=== PATIENT | female | born 1990 | race Caucasian/White ===

== ENCOUNTER → 2016-06-28 | Outpatient (CLI) | payer OTHER ==
--- NOTE | 2016-06-28 14:53 | US ---
EXAMINATION TYPE: US OB anatomy transabd DATE OF EXAM: 06/28/2016 12:59 PM COMPARISON: Prior first trimester ultrasound May 10, 2016. HISTORY: Anatomy scan, large for gestational age per order TECHNIQUE: TA pelvic ultrasound. EXAM MEASUREMENTS: GESTATIONAL AGE / DATING Physician Established: (19 weeks/3 days) EDC: 11/19/2016 Dates by LMP: unknown Dates by First Scan: (19 weeks/4 days) EDC: 11/18/2016 Dates by Current Scan for: (20 weeks/1 days) EDC: 11/14/2016 SURVEY IUP: Single PLACENTA: Anterior PREVIA: Low Lying CHAITANYA: 17.6cm CERVICAL LENGTH (transabdominal: norm > 3.0cm): 3.4 cm BIOMETRY PRESENTATION: Vertex LIE: Longitudinal BPD: 4.5 cm 19 weeks / 5 days HC: 16.8 cm 19 weeks / 4 days AC: 15.1 cm 20 weeks / 3 days FL: 3.3 cm 20 weeks / 3 days ESTIMATED WEIGHT IN GRAMS: 339 grams ESTIMATED WEIGHT IN LBS/OZS: 0 lbs. 12 oz. WEIGHT PERCENTAGE BASED ON ESTABLISHED DATE: 87 % HC/AC: 1.1 normal FL/AC: 22 normal HEART RATE: 169 bpm RHYTHM: Normal ANATOMY SEEN (within normal limits): * Lateral Vent (< 1 cm) 0.9cm * Cisterna Magna (< 1.1 cm) 0.5cm * Nuchal Fold (< 0.6 cm) 0.2 cm * Cerebellum (varies with age) 2.1 cm Choroid Plexus (bilateral) Midline Falx Cavus Septi Pellucidi Four Chamber Heart Outflow tracts: LVOT/RVOT Stomach Situs Nose / Lips Diaphragm Kidneys (bilateral) Bladder Cord Insert Three Vessel Cord Longitudinal Spine Transverse Spine Arms (bilateral) Legs (bilateral) TECHNOLOGIST IMPRESSION: Viable 20w1d fetus seen and appears to have low lying placenta with pre and post void imaging. Single live intrauterine gestation is redemonstrated, heart tones are regular and measure 169 b pm which is upper limits of normal. There is no ultrasound evidence for placenta previa. Low-lying pl acenta however is noted. Anechoic area anteriorly and inferiorly could reflect venous duffy. Amniotic fluid index is upper limits of normal. Normal cephalad presentation to fetus is currently identified. biometry measurements are within normal limits. Detailed anatomical survey shows no suspicious abnormality during real-time scanning. Still images saved are felt satisfactory. IMPRESSION: As above. Low-lying placenta is noted.
== END | disposition home or self-care (01) ==
LOC: RADUSWWP 12:17
PROVIDERS: ATTEND Obstetrics & Gynecology
DX: O44.42 Low lying placenta NOS or without hemorrhage, second trimester (principal); Z3A.20 20 weeks gestation of pregnancy
CPT/HCPCS: 76811

== ENCOUNTER → 2016-08-22 | Outpatient (CLI) | payer OTHER ==
[2016-08-22 14:05] LABS: CH 30.6; CHCM 32.6; HCT 36.8 % (34.0-46.0); HGB 12.2 gm/dL (11.4-16.0); MCH 31.3 pg (25.0-35.0); MCHC 33.1 g/dL (31.0-37.0); MCV 94.5 fL (80.0-100.0); Mean Platelet Volume 7.2; RDW 13.2 % (11.5-15.5); WBC 12.2 k/uL (3.8-10.6)
== END | disposition home or self-care (01) ==
LOC: LABWHC1 12:17
PROVIDERS: ATTEND Obstetrics & Gynecology
DX: Z34.82 Encounter for supervision of other normal pregnancy, second trimester (principal); Z3A.00 Weeks of gestation of pregnancy not specified
CPT/HCPCS: 36415; 82950; 85027

== ENCOUNTER 2016-11-18 06:03 | Inpatient (IN) | payer OTHER ==
[2016-11-18] MEDS ORDERED: LIDOCAINE 1% (PF) 10 MG/ML (30 ML SDV) SQ PRN (06:13)
[2016-11-18] MEDS ORDERED: TERBUTALINE 1 MG/ML VIAL SQ PRN (06:13)
[2016-11-18] MEDS ORDERED: METHYLERGONOVINE 0.2 MG/ML 1 ML AMP IM PRN (06:13)
[2016-11-18] MEDS ORDERED: CARBOPROST TROMETHAMINE 250 MCG/ML 1 ML AMP IM PRN (06:13)
[2016-11-18] MEDS ORDERED: OXYTOCIN 20 UNITS/1000 ML NS 1,000 ML IV SCH ×2 (06:13→17:15)
[2016-11-18] MEDS ORDERED: OXYTOCIN 10 UNIT/ML 1 ML VIAL IM PRN (06:13)
[2016-11-18 06:25] VITALS: BMI 37.4
[2016-11-18] MEDS: LACTATED RINGERS 1,000 ML IV SCH ×2 (06:33→12:28)
[2016-11-18 06:38] LABS: Basophils % (A) 0 %; CH 30.7; CHCM 33.7; Eosinophils # (A) 0.1 k/uL (0-0.7); Eosinophils % (A) 1 %; HCT 34.7 % (34.0-46.0); HDW 2.71; HGB 11.9 gm/dL (11.4-16.0); Luc # (Auto) 0.26; Luc % (Auto) 3; Lymphocytes # (A) 2.7 k/uL (1.0-4.8); Lymphocytes % (A) 27 %; MCH 31.4 pg (25.0-35.0); MCHC 34.2 g/dL (31.0-37.0); MCV 91.8 fL (80.0-100.0); Mean Platelet Volume 7.8; Monocytes # (A) 0.5 k/uL (0-1.0); Monocytes % (A) 5 %; Neutrophils # (A) 6.4 k/uL (1.3-7.7); Neutrophils % (A) 64 %; RBC 3.78 m/uL (3.80-5.40); RDW 13.9 % (11.5-15.5); WBC (Perox) 10.88
[2016-11-18] MEDS ORDERED: BUTORPHANOL 1 MG/ML 1 ML VIAL IV PRN (07:44)
--- NOTE | 2016-11-18 08:32 | P.HPOB ---
History of Present Illness H&P Date: 11/18/16 Chief Complaint: Induction of labor 26-year-old presents at 39 weeks and 6 days for induction of labor. Her cervix is 2 cm dilated, 70% effaced, and -2 station. She is manjinder irregularly. heart tones are 140-145 with moderate variability and reactive. Review of Systems All systems: negative Constitutional: Denies chills, Denies fever Eyes: denies blurred vision, denies pain Ears, nose, mouth and throat: Denies headache, Denies sore throat Cardiovascular: Denies chest pain, Denies shortness of breath Respiratory: Denies cough Gastrointestinal: Denies abdominal pain, Denies diarrhea, Denies nausea, Denies vomiting Genitourinary: Denies dysuria, Denies hematuria Musculoskeletal: Denies myalgias Integumentary: Denies pruritus, Denies rash Neurological: Denies numbness, Denies weakness Psychiatric: Denies anxiety, Denies depression Endocrine: Denies fatigue, Denies weight change Past Medical History Past Medical History: No Reported History Additional Past Medical History / Comment(s): Obstetrics history: She's had one termination one spontaneous and 1 full-term vaginal delivery. This is her fourth . She's had care with me since 11 weeks gestation. Blood type O+, amylase negative, rubella immune, treponema antibody negative, hepatitis B negative. Normal 1 hour glucose tolerance test. GBS negative. History of Any Multi-Drug Resistant Organisms: None Reported Past Surgical History: No Surgical Hx Reported Additional Past Surgical History / Comment(s): WISDOM TEETH Past Anesthesia/Blood Transfusion Reactions: No Reported Reaction Past Psychological History: No Psychological Hx Reported Smoking Status: Never smoker Past Alcohol Use History: None Reported Past Drug Use History: None Reported - Past Family History Father Family Medical History: Hypertension Mother Family Medical History: Diabetes Mellitus, Hypertension, Thyroid Disorder Medications and Allergies Home Medications Medication Instructions Recorded Confirmed Type Pnv,Calcium 72/Iron/Folic Acid 1 tab PO DAILY 11/18/16 11/18/16 History [ Plus Tablet] Allergies Allergy/AdvReac Type Severity Reaction Status Date / Time No Known Allergies Allergy Verified 11/18/16 06:11 Exam Osteopathic Statement: *. No significant issues noted on an osteopathic structural exam other than those noted in the History and Physical/Consult. - Vital Signs Vital signs: Vital Signs Temp Pulse Resp BP 11/18/16 06:17 96.6 F L 109 H 16 131/91 Intake and Output 11/17/16 11/18/16 11/18/16 22:59 06:59 14:59 Other: Weight 89.811 kg Heart: Regular rate and rhythm Lungs: Clear to auscultation bilaterally Abdomen: Soft, nontender Extremities: Negative Homans sign Results Result Diagrams: 11/18/16 06:16 Abnormal Lab Results - Last 24 Hours (Table) 11/18/16 Range/Units 06:16 RBC 3.78 L (3.80-5.40) m/uL Assessment and Plan (1) Normal labor Status: Acute Plan: 1. Admit to family place 2. Amniotomy and Pitocin for induction of labor 3. Anticipate normal vaginal delivery
[2016-11-18] MEDS ORDERED: SODIUM CHLORIDE 0.9% 100 ML BAG ONE (12:42)
[2016-11-18] MEDS ORDERED: fentaNYL (PF) 50 MCG/ML 5 ML AMP ONE (12:42)
[2016-11-18] MEDS ORDERED: BUPIVACAINE (PF) 0.25% 30 ML VIAL ONE (12:42)
[2016-11-18] MEDS ORDERED: IBUPROFEN 600 MG TAB PO PRN (17:04)
[2016-11-18] MEDS ORDERED: ZOLPIDEM 5 MG TAB PO PRN (17:04)
[2016-11-18] MEDS ORDERED: WITCH HAZEL 1 EACH MED..PAD TOPICAL PRN (17:04)
[2016-11-18] MEDS ORDERED: ACETAMINOPHEN TAB 325 MG TAB PO PRN (17:04)
[2016-11-18] MEDS ORDERED: diphenhydrAMINE 50 MG/ML 1 ML VIAL IVP PRN ×2 (17:04)
[2016-11-18] MEDS ORDERED: BENZOCAINE/MENTHOL SPRAY 1 GM/SPRAY AEROSOL TOPICAL PRN (17:04)
[2016-11-18] MEDS ORDERED: SIMETHICONE 80 MG CHEWABLE PO PRN (17:04)
[2016-11-18] MEDS ORDERED: diphenhydrAMINE 25 MG CAP PO PRN (17:04)
[2016-11-18] MEDS ORDERED: HYDROCORTISONE 2.5% RECTAL CREAM 30 GM TUBE RECTAL PRN (17:04)
[2016-11-18] MEDS ORDERED: Acetaminophen-Codeine 300-30mg TAB PO PRN ×2 (17:04)
[2016-11-18] MEDS ORDERED: diphenhydrAMINE 50 MG CAP PO PRN (17:04)
[2016-11-18] MEDS ORDERED: LANOLIN CREAM 5 GM TUBE TOPICAL PRN (17:04)
--- NOTE | 2016-11-18 17:09 | P.PROBDLV ---
Vaginal Delivery Note - . Vaginal Delivery Note: 26 year old at 39 weeks and 6 days presents for induction of labor. Her cervix is 2 cm dilated, 70% effaced, -3 station. She is manjinder irregularly. heart tones 140-145 with moderate variability and reactive. Was started and amniotomy was performed at 7:18 AM, clear fluid noted. She progressed about 4 cm and did get an epidural was comfortable. Her cervix was completely dilated at 1501. She pushed, delivered a viable female over intact perineum under epidural anesthesia at 1540. Head delivered OA, anterior shoulder delivered gentle downward traction followed by posterior shoulder and rest of body. Nose and mouth bulb suctioned, cord clamped and cut, placed mother's abdomen. Apgars 8, 9, weight 7 pounds. Placenta delivered spontaneously, intact with three-vessel cord at 1543. Vagina, cervix, and perineum were inspected. Bilateral labial lacerations were repaired with 3-0 Vicryl. Estimated blood loss 150 mL. Mother and baby in stable condition.
[2016-11-18] MEDS ORDERED: BUPIVACAINE (PF) 0.25% 25 ML, fentaNYL (PF) 200 MCG in SODIUM CHLORIDE 0.9% 71 ML EPIDURAL ONE (19:12)
[2016-11-18] MEDS: SENNOSIDES-DOCUSATE SODIUM 1 EACH TAB PO SCH (21:18)
[2016-11-19 07:40] VITALS: RESP 16
[2016-11-19] MEDS: SENNOSIDES-DOCUSATE SODIUM 1 EACH TAB PO SCH (10:47)
--- NOTE | 2016-11-19 11:58 | P.DS ---
Providers Date of admission: 11/18/16 06:03 Expected date of discharge: 11/19/16 Attending physician: Steffanie Singh Primary care physician: Stated None - Discharge Diagnosis(es) (1) Normal labor Current Visit: Yes Status: Resolved (2) Normal vaginal delivery Current Visit: No Status: Acute Hospital Course: Patient presented for induction of labor. She underwent a normal vaginal delivery. Denies nausea, vomiting, chest pain, shortness of breath or calf pain. She'll be discharged home day #1 in stable condition to follow -up with me in 6 weeks. Plan - Discharge Summary New Discharge Prescriptions: No Action Pnv,Calcium 72/Iron/Folic Acid [ Plus Tablet] 1 tab PO DAILY Discharge Medication List Pnv,Calcium 72/Iron/Folic Acid [ Plus Tablet] 1 tab PO DAILY 11/18/16 [ History] Follow up Appointment(s)/Referral(s): Steffanie Singh DO [Doctor of Osteopathic Medicine] - 6 Weeks Discharge Disposition: HOME SELF-CARE
[2016-11-19 16:43] VITALS: BP 110/65; PULSE 62; TEMP 98.3
== END 2016-11-19 16:30 | disposition home or self-care (01) | DRG 775 ==
LOC: 4FBP 06:03
PROVIDERS: ADMIT Obstetrics & Gynecology; ATTEND Obstetrics & Gynecology
PROC: 10E0XZZ Delivery of Products of Conception, External Approach (ICD-10-PCS; principal; 2016-11-18)
PROC: 10907ZC Drainage of Amniotic Fluid, Therapeutic from Products of Conception, Via Natural or Artificial Opening (ICD-10-PCS; 2016-11-18)
PROC: 0HQ9XZZ Repair Perineum Skin, External Approach (ICD-10-PCS; 2016-11-18)
PROC: 3E033VJ Introduction of Other Hormone into Peripheral Vein, Percutaneous Approach (ICD-10-PCS; 2016-11-18)
PROC: 3E0S3NZ Introduction of Analgesics, Hypnotics, Sedatives into Epidural Space, Percutaneous Approach (ICD-10-PCS; 2016-11-18)
DX: O70.0 First degree perineal laceration during delivery (principal); Z82.49 Family history of ischemic heart disease and other diseases of the circulatory system; Z37.0 Single live birth; Z3A.39 39 weeks gestation of pregnancy; Z83.3 Family history of diabetes mellitus; Z83.49 Family history of other endocrine, nutritional and metabolic diseases
CPT/HCPCS: 85025; 88307

== ENCOUNTER 2018-02-23 09:28 | Emergency (ER) | payer OTHER ==
[2018-02-23 09:51] VITALS: RESP 18
--- NOTE | 2018-02-23 10:29 | ED ---
General Adult HPI - General Chief complaint: Abdominal Pain Stated complaint: pelvic pain Time Seen by Provider: 02/23/18 10:09 Source: patient, RN notes reviewed Mode of arrival: ambulatory Limitations: no limitations - History of Present Illness Initial comments: 27-year-old female presents for evaluation of left-sided abdominal pain. Patient is with history of 1 previous left tubal ectopic . Last menstrual period was the end of December. She has had pain for the past several days. She did have some very minimal vaginal spotting yesterday. No significant hemorrhage. Pain is mid left-sided abdomen which is where her pain was previously. Last tubal was in June of this year. This was successfully treated with methotrexate. She's had no abdominal surgeries. She has had some mild nausea, no significant vomiting, normal bowels, no dysuria. No fever or chills. - Related Data Previous Rx's Medication Instructions Recorded Cephalexin [Keflex] 500 mg PO Q12HR #14 cap 02/23/18 Allergies Allergy/AdvReac Type Severity Reaction Status Date / Time No Known Allergies Allergy Verified 02/23/18 09:55 Review of Systems ROS Statement: Those systems with pertinent positive or pertinent negative responses have been documented in the HPI. ROS Other: All systems not noted in ROS Statement are negative. Past Medical History Past Medical History: No Reported History Additional Past Medical History / Comment(s): Obstetrics history: She's had one termination one spontaneous and 1 full-term vaginal delivery. This is her fourth . She's had care with mt since 11 weeks gestation. Blood type O+, amylase negative, rubella immune, treponema antibody negative, hepatitis B negative. Normal 1 hour glucose tolerance test. GBS negative. History of Any Multi-Drug Resistant Organisms: None Reported Past Surgical History: No Surgical Hx Reported Additional Past Surgical History / Comment(s): WISDOM TEETH Past Anesthesia/Blood Transfusion Reactions: No Reported Reaction Past Psychological History: No Psychological Hx Reported Smoking Status: Never smoker Past Alcohol Use History: Occasional Past Drug Use History: None Reported - Past Family History Father Family Medical History: Hypertension Mother Family Medical History: Diabetes Mellitus, Hypertension, Thyroid Disorder General Exam Limitations: no limitations General appearance: alert, in no apparent distress Head exam: Present: atraumatic, normocephalic Eye exam: Present: normal appearance, PERRL ENT exam: Present: normal exam Neck exam: Present: normal inspection. Absent: tenderness, meningismus Respiratory exam: Present: normal lung sounds bilaterally. Absent: respiratory distress, wheezes Cardiovascular Exam: Present: regular rate, normal rhythm GI/Abdominal exam: Present: soft, tenderness (Mild mid left-sided abdominal tenderness, no rebound or guarding). Absent: distended, guarding, rebound Extremities exam: Present: normal inspection, normal capillary refill. Absent: pedal edema Back exam: Present: normal inspection. Absent: CVA tenderness (R), CVA tenderness (L) Neurological exam: Present: alert, oriented X3 Psychiatric exam: Present: normal affect, normal mood Skin exam: Present: warm, dry, intact. Absent: cyanosis, diaphoretic Course Vital Signs 02/23/18 09:47 Temperature 98.3 F Pulse Rate 94 Respiratory 18 Rate Blood Pressure 118/80 O2 Sat by Pulse 99 Oximetry Medical Decision Making - Medical Decision Making 27-year-old female presenting with concern for and possible tubal . She has had previous ectopic . She's having some left- sided abdominal pain and was concerned that this may be another tubal . She is approximately 6 weeks by last menstrual period. No heavy vaginal bleeding, she had some mild vaginal spotting. Laboratory testing obtained, shows normal CBC, normal CMP, serum hCG is 64,560. Urinalysis shows 3 WBCs and rare bacteria. She is O positive. Ultrasound is obtained which is positive for single live intrauterine , proximally 6 weeks 1 day. Heart rate 123, there is a 1.9 cm subchorionic hemorrhage. No free fluid in the abdomen. No evidence of ectopic . Patient does have OB follow-up. She is given instructions on threatened miscarriage given her symptoms as well as the subchorionic hemorrhage. She has asymptomatic bacteriuria which will be treated. Culture is pending. - Lab Data Result diagrams: 02/23/18 10:35 02/23/18 10:35 Lab Results 02/23/18 02/23/18 02/23/18 Range/Units 10:35 10:35 11:00 WBC 11.1 H (3.8-10.6) k/uL RBC 4.52 (3.80-5.40) m/uL Hgb 13.8 (11.4-16.0) gm/dL Hct 40.6 (34.0-46.0) % MCV 89.8 (80.0-100.0) fL MCH 30.5 (25.0-35.0) pg MCHC 34.0 (31.0-37.0) g/dL RDW 12.5 (11.5-15.5) % Plt Count 235 (150-450) k/uL Neutrophils % 74 % Lymphocytes % 20 % Monocytes % 4 % Eosinophils % 1 % Basophils % 0 % Neutrophils # 8.2 H (1.3-7.7) k/uL Lymphocytes # 2.2 (1.0-4.8) k/uL Monocytes # 0.5 (0-1.0) k/uL Eosinophils # 0.1 (0-0.7) k/uL Basophils # 0.0 (0-0.2) k/uL Sodium 139 (137-145) mmol/L Potassium 4.0 (3.5-5.1) mmol/L Chloride 107 (98-107) mmol/L Carbon Dioxide 23 (22-30) mmol/L Anion Gap 9 mmol/L BUN 13 (7-17) mg/dL Creatinine 0.48 L (0.52-1.04) mg/dL Est GFR (CKD-EPI)AfAm >90 (>60 ml/min/1.73 sqM) Est GFR (CKD-EPI)NonAf >90 (>60 ml/min/1.73 sqM) Glucose 101 H (74-99) mg/dL Calcium 9.8 (8.4-10.2) mg/dL Total Bilirubin 0.8 (0.2-1.3) mg/dL AST 17 (14-36) U/L ALT 20 (9-52) U/L Alkaline Phosphatase 57 (38-126) U/L Total Protein 7.8 (6.3-8.2) g/dL Albumin 4.5 (3.5-5.0) g/dL HCG, Quant 54484.3 mIU/mL Urine Color Urine Appearance (Clear) Urine pH (5.0-8.0) Ur Specific [place] (1.001-1.035) Urine Protein (Negative) Urine Glucose (UA) (Negative) Urine Ketones (Negative) Urine Blood (Negative) Urine Nitrite (Negative) Urine Bilirubin (Negative) Urine Urobilinogen (<2.0) mg/dL Ur Leukocyte Esterase (Negative) Urine WBC (0-5) /hpf Ur Squamous Epith Cells (0-4) /hpf Amorphous Sediment (None) /hpf Urine Bacteria (None) /hpf Urine Mucus (None) /hpf Urine HCG, Qual Detected (Not Detectd) Blood Type Blood Type Recheck 02/23/18 02/23/18 Range/Units 11:00 12:30 WBC (3.8-10.6) k/uL RBC (3.80-5.40) m/uL Hgb (11.4-16.0) gm/dL Hct (34.0-46.0) % MCV (80.0-100.0) fL MCH (25.0-35.0) pg MCHC (31.0-37.0) g/dL RDW (11.5-15.5) % Plt Count (150-450) k/uL Neutrophils % % Lymphocytes % % Monocytes % % Eosinophils % % Basophils % % Neutrophils # (1.3-7.7) k/uL Lymphocytes # (1.0-4.8) k/uL Monocytes # (0-1.0) k/uL Eosinophils # (0-0.7) k/uL Basophils # (0-0.2) k/uL Sodium (137-145) mmol/L Potassium (3.5-5.1) mmol/L Chloride (98-107) mmol/L Carbon Dioxide (22-30) mmol/L Anion Gap mmol/L BUN (7-17) mg/dL Creatinine (0.52-1.04) mg/dL Est GFR (CKD-EPI)AfAm (>60 ml/min/1.73 sqM) Est GFR (CKD-EPI)NonAf (>60 ml/min/1.73 sqM) Glucose (74-99) mg/dL Calcium (8.4-10.2) mg/dL Total Bilirubin (0.2-1.3) mg/dL AST (14-36) U/L ALT (9-52) U/L Alkaline Phosphatase (38-126) U/L Total Protein (6.3-8.2) g/dL Albumin (3.5-5.0) g/dL HCG, Quant mIU/mL Urine Color Yellow Urine Appearance Cloudy H (Clear) Urine pH 6.0 (5.0-8.0) Ur Specific [place] 1.014 (1.001-1.035) Urine Protein Negative (Negative) Urine Glucose (UA) Negative (Negative) Urine Ketones Negative (Negative) Urine Blood Negative (Negative) Urine Nitrite Negative (Negative) Urine Bilirubin Negative (Negative) Urine Urobilinogen <2.0 (<2.0) mg/dL Ur Leukocyte Esterase Large H (Negative) Urine WBC 3 (0-5) /hpf Ur Squamous Epith Cells 17 H (0-4) /hpf Amorphous Sediment Rare H (None) /hpf Urine Bacteria Rare H (None) /hpf Urine Mucus Occasional H (None) /hpf Urine HCG, Qual (Not Detectd) Blood Type O Positive Blood Type Recheck No Disposition Clinical Impression: Threatened miscarriage, Asymptomatic bacteriuria during , Subchorionic hemorrhage Disposition: HOME SELF-CARE Condition: Good Instructions: Threatened Miscarriage (ED), (ED), Urinary Tract Infection in (ED) Prescriptions: Cephalexin [Keflex] 500 mg PO Q12HR #14 cap Is patient prescribed a controlled substance at d/c from ED?: No Referrals: None,Stated [Primary Care Provider] - 1-2 days Steffanie Singh DO [Doctor of Osteopathic Medicine] - 1-2 days Time of Disposition: 13:37
[2018-02-23 10:47] LABS: Basophils % (A) 0 %; Eosinophils # (A) 0.1 k/uL (0-0.7); Eosinophils % (A) 1 %; HCT 40.6 % (34.0-46.0); HGB 13.8 gm/dL (11.4-16.0); Lymphocytes # (A) 2.2 k/uL (1.0-4.8); Lymphocytes % (A) 20 %; MCH 30.5 pg (25.0-35.0); MCV 89.8 fL (80.0-100.0); Mean Platelet Volume 7.3; Monocytes # (A) 0.5 k/uL (0-1.0); Monocytes % (A) 4 %; Neutrophils # (A) 8.2 k/uL (1.3-7.7); Neutrophils % (A) 74 %; Platelet Count 235 k/uL (150-450); RBC 4.52 m/uL (3.80-5.40); RDW 12.5 % (11.5-15.5); WBC 11.1 k/uL (3.8-10.6)
[2018-02-23 10:56] LABS: ALT 20 U/L (9-52); AST 17 U/L (14-36); Albumin 4.5 g/dL (3.5-5.0); Alkaline Phosphatase 57 U/L (38-126); Anion Gap 9 mmol/L; Blood Urea Nitrogen 13 mg/dL (7-17); Calcium 9.8 mg/dL (8.4-10.2); Carbon Dioxide 23 mmol/L (22-30); Chloride 107 mmol/L (98-107); Glucose 101 mg/dL (74-99); Sodium 139 mmol/L (137-145); Total Bilirubin 0.8 mg/dL (0.2-1.3); Total Protein 7.8 g/dL (6.3-8.2)
[2018-02-23 11:16] LABS: Amorphous Sediment,Urine Rare /hpf; Appearance,Urine Cloudy (Clear); Bacteria,Urine Rare /hpf; Bilirubin,Urine Negative (Negative); Blood,Urine Negative (Negative); Color,Urine Yellow; Glucose,Urine (UA) Negative (Negative); Ketones,Urine Negative (Negative); Leukocyte Esterase,Urine Large (Negative); Mucus,Urine Occasional /hpf; Nitrite,Urine Negative (Negative); Protein,Urine Negative (Negative); Specific Gravity,Urine 1.014 (1.001-1.035); Squamous Epithelial Cell,Urine 17 /hpf (0-4); Urobilinogen,Urine <2.0 mg/dL (<2.0); WBC,Urine 3 /hpf (0-5)
[2018-02-23 11:39] LABS: HCG,Quantitative Serum 64560.3 mIU/mL
--- NOTE | 2018-02-23 12:26 | US ---
EXAMINATION TYPE: Transabdominal DATE OF EXAM: 08/15/17 COMPARISON: NONE CLINICAL HISTORY: Pain. LLQ pain EXAM PERFORMED: Transvaginal (TV) and Transabdominal (TA) EXAM MEASUREMENTS: GESTATIONAL AGE / DATING Physician Established: Not yet established Dates by LMP: (6 weeks/6 days) EDC: 10/13/2018 Dates by First Scan: No previous this is first scan Dates by Current Scan for: (6 weeks/1 days) EDC: 10/18/2018 MATERNAL ANATOMY Uterus: 10.4 x 5.1 x 6.1 cm Right Ovary: 2.6 x 1.5 x 2.3 cm Left Ovary: 3.4 x 2.3 x 3.2 cm Post CDS / Adnexa: wnl Presence of free fluid: none Presence of corpus luteal cyst: left ovary mixed lesion with peripheral flow measures 2.3 x 1.8 x 2.2 cm Presence of subchorionic bleed: hypoechoic area adjacent to sac measures 1.9 x 0.5 x 1.2 cm GESTATION / SURVEY CRL: 0.5 cm (6 weeks/1 days) Yolk Sac (normal less than 6mm): 0.4 cm Heart Rate: 123 bpm Rhythm: Normal IUP: Viable IUP Date of LMP: 01/06/2018 Beta HcG (if available): not available Viable IUP that correlates with LMP. IMPRESSION: 1. Viable intrauterine of 6 weeks 1 day with an EDC of 10/18/2018 and heart rate 123 bpm. The re is a suggestion of a 1.9 cm subchorionic hemorrhage. Correlate clinically.
[2018-02-23 13:55] VITALS: BP 131/62; PULSE 65; TEMP 98.1
== END 2018-02-23 13:50 | disposition home or self-care (01) ==
LOC: EC 09:28
DX: O20.0 Threatened abortion (principal); O99.89 Other specified diseases and conditions complicating pregnancy, childbirth and the puerperium; R82.71 Bacteriuria; O20.8 Other hemorrhage in early pregnancy; Z3A.01 Less than 8 weeks gestation of pregnancy; Z87.59 Personal history of other complications of pregnancy, childbirth and the puerperium
CPT/HCPCS: 36415; 76801; 76817; 80053; 81001; 81025; 84702; 85025; 86900; 86901; 87086; 99284

== ENCOUNTER → 2022-12-14 | Outpatient (CLI) | payer OTHER ==
--- NOTE | 2022-12-14 09:38 | MM ---
Reason for Exam: Clinical finding. Baseline mammogram. Indicated Problems: Pain of the left side (Global) for 3 Month(s) : lateral breast pain. Patient History: Menarche at age 13. First Full-Term at age 24. Hormonal Contraceptives for 6 months. Maternal aunt had breast cancer under age 50. Maternal grandmother had breast cancer. Last menstrual period: 12/14/2022 Prior Study Comparison: Patient's first Mammogram. Tissue Density: The breast tissue is heterogeneously dense. This may lower the sensitivity of mammography. Findings: Analyzed By CAD. No suspicious mass, architectural distortion, or calcification within either breast. Overall Assessment: Incomplete: need additional imaging evaluation, BI-RAD 0 Management: Diagnostic Breast Ultrasound of the left breast. A clinical breast exam by your physician is recommended on an annual basis and results should be correlated with mammographic findings. This exam should not preclude additional follow-up of suspicious palpable abnormalities. Results were given to the patient verbally at the time of exam. Note on Radha scores and lifetime risk: 1. A Radha score greater than 3% is considered moderate risk. If this is the case, consider specialist referral to assess eligibility for a risk reducing agent. If overall lifetime risk for the development of breast cancer is 20% or higher, the patient may qualify for future screening with alternating mammogram and breast MRI. Electronically signed and approved by: Ramy Gomes D.O.
--- NOTE | 2022-12-14 10:00 | USB ---
Reason for Exam: Clinical finding. Patient History: Menarche at age 13. First Full-Term at age 24. Hormonal Contraceptives for 6 months. Maternal aunt had breast cancer under age 50. Maternal grandmother had breast cancer. Technique: Method: Targeted. Findings: The lower outer quadrant of the left breast, the axilla of the left breast and the retroareolar of the left breast were scanned. Targeted ultrasound of the left breast from 3-6 o'clock was performed of the patient's region of pain. Additional evaluation of the nipple and axilla. No solid or cystic mass identified. Overall Assessment: Negative, BI-RAD 1 Management: Screening Mammogram of both breasts at age 42. Clinical management for patient's pain. A clinical breast exam by your physician is recommended on an annual basis and results should be correlated with mammographic findings. This exam should not preclude additional follow-up of suspicious palpable abnormalities. Results were given to the patient verbally at the time of exam. Electronically signed and approved by: Ramy Gomes D.O.
== END | disposition home or self-care (01) ==
LOC: RADMAMWWP 09:11
PROVIDERS: ATTEND Obstetrics & Gynecology
DX: N64.4 Mastodynia (principal); Z80.3 Family history of malignant neoplasm of breast
CPT/HCPCS: 77066; 76642; G0279; 77062

== ENCOUNTER 2023-12-11 21:19 | Emergency (ER) | payer OTHER ==
[2023-12-11 21:30] VITALS: TEMP 98.7
--- NOTE | 2023-12-11 21:50 | ED ---
Abdominal Pain HPI - General Chief Complaint: Abdominal Pain Stated Complaint: Abd Pain-Poss Preg Time Seen by Provider: 12/11/23 21:49 Source: patient, RN notes reviewed Mode of arrival: ambulatory - History of Present Illness Initial Comments: 33-year-old female presented to the ER with a chief complaint of left-sided abdominal pain. She states has been ongoing all day with increase in intensity. She states pain radiates from her left ribs to her back down her left lower q uadrant. She does report hematuria. She states she has been trying to conceive and is due her room for her menstrual cycle any day. She does have a history of an ectopic and states similar symptoms today as before. She endorses nausea, lightheadedness and fatigue. Denies any fevers, chills, constipation/diarrhea, chest pain, shortness of breath. - Related Data Previous Rx's Medication Instructions Recorded Cephalexin [Keflex] 500 mg PO Q12HR #14 cap 02/23/18 Allergies Allergy/AdvReac Type Severity Reaction Status Date / Time No Known Allergies Allergy Verified 02/23/18 09:55 Review of Systems ROS Statement: Those systems with pertinent positive or pertinent negative responses have been documented in the HPI. ROS Other: All systems not noted in ROS Statement are negative. Past Medical History Past Medical History: No Reported History Additional Past Medical History / Comment(s): Obstetrics history: She's had one termination one spontaneous and 1 full-term vaginal delivery. This is her fourth . She's had care with me since 11 weeks gestation. Blood type O+, amylase negative, rubella immune, treponema antibody negative, hepatitis B negative. Normal 1 hour glucose tolerance test. GBS negative. History of Any Multi-Drug Resistant Organisms: None Reported Past Surgical History: No Surgical Hx Reported Additional Past Surgical History / Comment(s): WISDOM TEETH Past Anesthesia/Blood Transfusion Reactions: No Reported Reaction Past Psychological History: No Psychological Hx Reported Smoking Status: Never smoker Past Alcohol Use History: Occasional Past Drug Use History: None Reported - Past Family History Father Family Medical History: Hypertension Mother Family Medical History: Diabetes Mellitus, Hypertension, Thyroid Disorder General Exam - General Exam Comments Initial Comments: Visual Physical Exam Vital signs reviewed General: Well-appearing, nontoxic, no acute distress. Head: Normocephalic, atraumatic Eyes: PERRLA, EOMI ENT: Airway patent Chest: Nonlabored breathing Skin: No visual rash, normal skin tone Neuro: Alert and oriented 3 Musculoskeletal: No gross abnormalities General appearance: alert, in no apparent distress Respiratory exam: Present: normal lung sounds bilaterally. Absent: respiratory distress, wheezes, rales, rhonchi, stridor Cardiovascular Exam: Present: regular rate, normal rhythm, normal heart sounds. Absent: systolic murmur, diastolic murmur, rubs, gallop, clicks GI/Abdominal exam: Present: soft, tenderness (Left-sided), normal bowel sounds Neurological exam: Present: alert, oriented X3, CN II-XII intact Skin exam: Present: warm, dry, intact, normal color. Absent: rash Course Vital Signs 12/11/23 12/11/23 12/12/23 21:28 22:36 01:55 Temperature 98.7 F Pulse Rate 76 64 55 L Respiratory 18 16 17 Rate Blood Pressure 122/70 114/74 113/79 O2 Sat by Pulse 98 96 99 Oximetry Medical Decision Making - Medical Decision Making I performed the quick note portion of this chart. Electronically signed by Oliver Arenas PA-C Was pt. sent in by a medical professional or institution (MATHEW Sunshine, HEAD CONTROL CLERK, urgent care, hospital, or custodial...) When possible be specific @ -No Did you speak to anyone other than the patient for history (EMS, parent, family, police, friend...)? What history was obtained from this source @ -No Did you review nursing and triage notes (agree or disagree)? Why? @ -I reviewed and agree with nursing and triage notes Were old charts reviewed (outside hosp., previous admission, EMS record, old EKG , old radiological studies, urgent care reports/EKG's, custodial records)? Report findings @ -No old charts were reviewed Differential Diagnosis (chest pain, altered mental status, abdominal pain women, abdominal pain men, vaginal bleeding, weakness, fever, dyspnea, syncope, headache, dizziness, GI bleed, back pain, seizure, CVA, palpatations, mental health, musculoskeletal)? @ -Differential Abdominal Pain Women: Appendicitis, Cholecystitis, diverticulosis, ischemic bowel, pancreatitis, hepatitis, UTI, gastroenteritis, AAA, incarcerated hernia, bowel obstruction, constipation, inflammatory bowel, hepatitis, peptic ulcer disease, splenic infarction, perforated viscus, vulvitis, ovarian torsion, PID, kidney stone, placenta abruption, this is not meant to be an all-inclusive list EKG interpreted by me (3pts min.). @ -None X-rays interpreted by me (1pt min.). @ -None done CT interpreted by me (1pt min.). @ -CT abdomen pelvis negative for acute intra-abdominal process. U/S interpreted by me (1pt. min.). @ -None done What testing was considered but not performed or refused? (CT, X-rays, U/S, labs)? Why? @ -None What meds were considered but not given or refused? Why? @ -Patient refused analgesic medications. Did you discuss the management of the patient with other professionals (professionals i.e. , PA, HEAD CONTROL CLERK, lab, RT, psych nurse, social service agency director, pack master, teacher, forest fire management officer, oil field caser)? Give summary @ -No Was smoking cessation discussed for >3mins.? @ -No Was critical care preformed (if so, how long)? @ -No Were there social determinants of health that impacted care today? How? (Homelessness, low income, unemployed, alcoholism, drug addiction, transportat ion, low edu. Level, literacy, decrease access to med. care, retirement, rehab)? @ -No Was there de-escalation of care discussed even if they declined (Discuss DNR or withdrawal of care, Hospice)? DNR status @ -No What co-morbidities impacted this encounter? (DM, HTN, Smoking, COPD, CAD, Cancer, CVA, ARF, Chemo, Hep., AIDS, mental health diagnosis, sleep apnea, morbid obesity)? @ -None Was patient admitted / discharged? Hospital course, mention meds given and route, prescriptions, significant lab abnormalities, going to OR and other pertinent info. @ -Discharge. 33-year-old female presented to ER with a chief complaint of left-sided abdominal pain. History and physical exam completed. Vitals stable. Mild abdominal tenderness to left side. Normal bowel sounds with no rebound or guarding. Laboratory studies obtained unremarkable. Hemoglobin stable at 13.3. hCG quant less than 2.4. Urinalysis is hemorrhagic with large broad and 122 RBCs which is likely cross contaminated from vagina as patient is due to start menstrual cycle. CT abdomen pelvis negative for acute intra-abdominal process. Symptomatic control in the ER. Patient refused analgesic medications. Upon reevaluation, patient eager for discharge in no signs of acute distress. Results discussed with patient, all questions answered. Advise close follow-up with PCP. Strict return parameters discussed. Patient verbally expressed understanding and agreed with care plan. Case discussed with ED attending, Dr. Chavez. Undiagnosed new problem with uncertain prognosis? @ -No Drug Therapy requiring intensive monitoring for toxicity (Heparin, Nitro, Insulin, Cardizem)? @ -No Were any procedures done? @ -No Diagnosis/symptom? @ -Abdominal pain Acute, or Chronic, or Acute on Chronic? @ -Acute Uncomplicated (without systemic symptoms) or Complicated (systemic symptoms)? @ -Uncomplicated Side effects of treatment? @ -No Exacerbation, Progression, or Severe Exacerbation? @ -No Poses a threat to life or bodily function? How? (Chest pain, [place], [place], pneumonia, PE, COPD, DKA, ARF, appy, cholecystitis, CVA, Diverticulitis, Homicidal, Suicidal, threat to staff... and all critical care pts) @ -No - Lab Data Result diagrams: 12/11/23 22:14 12/11/23 22:14 Lab Results 12/11/23 12/11/23 12/11/23 Range/Units 22:14 22:14 22:14 WBC 9.3 (3.8-10.6) k/uL RBC 4.37 (3.80-5.40) m/uL Hgb 13.6 (11.4-16.0) gm/dL Hct 40.4 (34.0-46.0) % MCV 92.4 (80.0-100.0) fL MCH 31.0 (25.0-35.0) pg MCHC 33.6 (31.0-37.0) g/dL RDW 12.1 (11.5-15.5) % Plt Count 258 (150-450) k/uL MPV 7.8 Neutrophils % 61 % Lymphocytes % 27 % Monocytes % 7 % Eosinophils % 3 % Basophils % 0 % Neutrophils # 5.6 (1.3-7.7) k/uL Lymphocytes # 2.5 (1.0-4.8) k/uL Monocytes # 0.6 (0-1.0) k/uL Eosinophils # 0.3 (0-0.7) k/uL Basophils # 0.0 (0-0.2) k/uL Sodium 138 (137-145) mmol/L Potassium 3.9 (3.5-5.1) mmol/L Chloride 107 (98-107) mmol/L Carbon Dioxide 23 (22-30) mmol/L Anion Gap 8 mmol/L BUN 17 (7-17) mg/dL Creatinine 0.54 (0.52-1.04) mg/dL Est GFR (CKD-EPI)AfAm >90 (>60 ml/min/1.73 sqM) Est GFR (CKD-EPI)NonAf >90 (>60 ml/min/1.73 sqM) Glucose 102 H (74-99) mg/dL Calcium 9.7 (8.4-10.2) mg/dL Total Bilirubin 0.4 (0.2-1.3) mg/dL AST 24 (14-36) U/L ALT 18 (4-34) U/L Alkaline Phosphatase 73 (38-126) U/L Total Protein 7.2 (6.3-8.2) g/dL Albumin 4.5 (3.5-5.0) g/dL HCG, Quant <2.4 mIU/mL Urine Color Urine Appearance (Clear) Urine pH (5.0-8.0) Ur Specific Anderson (1.001-1.035) Urine Protein (Negative) Urine Glucose (UA) (Negative) Urine Ketones (Negative) Urine Blood (Negative) Urine Nitrite (Negative) Urine Bilirubin (Negative) Urine Urobilinogen (<2.0) mg/dL Ur Leukocyte Esterase (Negative) Urine RBC (0-5) /hpf Urine WBC (0-5) /hpf Ur Squamous Epith Cells (0-4) /hpf Urine Bacteria (None) /hpf Hyaline Casts (0-2) /lpf Urine Mucus (None) /hpf Blood Type O Positive Blood Type Recheck O Pos Bld Type Recheck Status No 12/11/23 Range/Units 23:52 WBC (3.8-10.6) k/uL RBC (3.80-5.40) m/uL Hgb (11.4-16.0) gm/dL Hct (34.0-46.0) % MCV (80.0-100.0) fL MCH (25.0-35.0) pg MCHC (31.0-37.0) g/dL RDW (11.5-15.5) % Plt Count (150-450) k/uL MPV Neutrophils % % Lymphocytes % % Monocytes % % Eosinophils % % Basophils % % Neutrophils # (1.3-7.7) k/uL Lymphocytes # (1.0-4.8) k/uL Monocytes # (0-1.0) k/uL Eosinophils # (0-0.7) k/uL Basophils # (0-0.2) k/uL Sodium (137-145) mmol/L Potassium (3.5-5.1) mmol/L Chloride (98-107) mmol/L Carbon Dioxide (22-30) mmol/L Anion Gap mmol/L BUN (7-17) mg/dL Creatinine (0.52-1.04) mg/dL Est GFR (CKD-EPI)AfAm (>60 ml/min/1.73 sqM) Est GFR (CKD-EPI)NonAf (>60 ml/min/1.73 sqM) Glucose (74-99) mg/dL Calcium (8.4-10.2) mg/dL Total Bilirubin (0.2-1.3) mg/dL AST (14-36) U/L ALT (4-34) U/L Alkaline Phosphatase (38-126) U/L Total Protein (6.3-8.2) g/dL Albumin (3.5-5.0) g/dL HCG, Quant mIU/mL Urine Color Light Yellow Urine Appearance Clear (Clear) Urine pH 5.5 (5.0-8.0) Ur Specific Anderson 1.021 (1.001-1.035) Urine Protein Trace H (Negative) Urine Glucose (UA) Negative (Negative) Urine Ketones Negative (Negative) Urine Blood Large H (Negative) Urine Nitrite Negative (Negative) Urine Bilirubin Negative (Negative) Urine Urobilinogen <2.0 (<2.0) mg/dL Ur Leukocyte Esterase Trace H (Negative) Urine RBC 122 H (0-5) /hpf Urine WBC 12 H (0-5) /hpf Ur Squamous Epith Cells 1 (0-4) /hpf Urine Bacteria Occasional H (None) /hpf Hyaline Casts 3 H (0-2) /lpf Urine Mucus Rare H (None) /hpf Blood Type Blood Type Recheck Bld Type Recheck Status - Radiology Data Radiology results: report reviewed, image reviewed Disposition Clinical Impression: Abdominal pain Disposition: HOME SELF-CARE Condition: Stable Instructions (If sedation given, give patient instructions): Abdominal Pain (ED) Additional Instructions: Please follow-up with PCP. Return to the ER for any new or worsening concerns. Is patient prescribed a controlled substance at d/c from ED?: No Referrals: None,Stated [Primary Care Provider] - 1-2 days Forms: Area PCPs Time of Disposition: 01:42
[2023-12-11 22:31] LABS: Basophils % (A) 0 %; Eosinophils # (A) 0.3 k/uL (0-0.7); Eosinophils % (A) 3 %; HCT 40.4 % (34.0-46.0); HGB 13.6 gm/dL (11.4-16.0); Lymphocytes # (A) 2.5 k/uL (1.0-4.8); Lymphocytes % (A) 27 %; MCHC 33.6 g/dL (31.0-37.0); MCV 92.4 fL (80.0-100.0); Mean Platelet Volume 7.8; Monocytes # (A) 0.6 k/uL (0-1.0); Monocytes % (A) 7 %; Neutrophils # (A) 5.6 k/uL (1.3-7.7); Neutrophils % (A) 61 %; Platelet Count 258 k/uL (150-450); RBC 4.37 m/uL (3.80-5.40); RDW 12.1 % (11.5-15.5); WBC 9.3 k/uL (3.8-10.6)
[2023-12-11 22:44] LABS: ALT 18 U/L (4-34); AST 24 U/L (14-36); African American GFR (CKD) >90 (>60 ml/min/1.73 sqM); Albumin 4.5 g/dL (3.5-5.0); Alkaline Phosphatase 73 U/L (38-126); Anion Gap 8 mmol/L; Blood Urea Nitrogen 17 mg/dL (7-17); Calcium 9.7 mg/dL (8.4-10.2); Carbon Dioxide 23 mmol/L (22-30); Chloride 107 mmol/L (98-107); Glucose 102 mg/dL (74-99); Non-African American GFR(CKD) >90 (>60 ml/min/1.73 sqM); Potassium 3.9 mmol/L (3.5-5.1); Sodium 138 mmol/L (137-145); Total Bilirubin 0.4 mg/dL (0.2-1.3); Total Protein 7.2 g/dL (6.3-8.2)
[2023-12-11 22:59] LABS: HCG,Quantitative Serum <2.4 mIU/mL
[2023-12-11] MEDS: SODIUM CHLORIDE 0.9% 1,000 ML IV STA (23:14)
[2023-12-12 00:24] LABS: Appearance,Urine Clear (Clear); Bacteria,Urine Occasional /hpf; Bilirubin,Urine Negative (Negative); Blood,Urine Large (Negative); Color,Urine Light Yellow; Glucose,Urine (UA) Negative (Negative); Hyaline Casts,Urine 3 /lpf (0-2); Ketones,Urine Negative (Negative); Leukocyte Esterase,Urine Trace (Negative); Mucus,Urine Rare /hpf; Nitrite,Urine Negative (Negative); PH, Urine 5.5 (5.0-8.0); Protein,Urine Trace (Negative); RBC,Urine 122 /hpf (0-5); Specific Gravity,Urine 1.021 (1.001-1.035); Squamous Epithelial Cell,Urine 1 /hpf (0-4); Urobilinogen,Urine <2.0 mg/dL (<2.0); WBC,Urine 12 /hpf (0-5)
--- NOTE | 2023-12-12 01:37 | CT ---
EXAM: CT Abdomen and Pelvis With Intravenous Contrast CLINICAL HISTORY: ITS.REASON CT Reason: left sided abd pain TECHNIQUE: Axial computed tomography images of the abdomen and pelvis with intravenous contrast. CTDI is 19.4 mGy and DLP is 928.7 mGy-cm. This CT exam was performed using one or more of the following dose reduction techniques: automated exposure control, adjustment of the mA and/or kV according to patient size, and/or use of iterative reconstruction technique. COMPARISON: No relevant prior studies available. FINDINGS: Lung bases: Unremarkable. No mass. No consolidation. ABDOMEN: Liver: Unremarkable. No mass. Gallbladder and bile ducts: Unremarkable. No calcified stones. No ductal dilation. Pancreas: Unremarkable. No mass. No ductal dilation. Spleen: Unremarkable. No splenomegaly. Adrenals: Unremarkable. No mass. Kidneys and ureters: Unremarkable. No solid mass. No hydronephrosis. Stomach and bowel: Unremarkable. No obstruction. No mucosal thickening. PELVIS: Appendix: No findings to suggest acute appendicitis. Bladder: Unremarkable. No mass. Reproductive: Unremarkable as visualized. ABDOMEN and PELVIS: Intraperitoneal space: Unremarkable. No free air. No significant fluid collection. Bones/joints: No acute fracture. No dislocation. Soft tissues: Unremarkable. Vasculature: Unremarkable. No abdominal aortic aneurysm. Lymph nodes: Unremarkable. No enlarged lymph nodes. IMPRESSION: Normal abdomen and pelvis CT.
[2023-12-12 01:56] VITALS: BP 113/79; PULSE 55; RESP 17
== END 2023-12-12 01:56 | disposition home or self-care (01) ==
LOC: EC 21:19
DX: R10.32 Left lower quadrant pain (principal)
CPT/HCPCS: 36415; 74177; 80053; 81001; 84702; 85025; 86900; 86901; 87086; 96360; 99284

== ENCOUNTER → 2024-02-14 | Outpatient (CLI) | payer OTHER ==
--- NOTE | 2024-02-14 13:24 | CA ---
Exercise Stress Test Report Name: Christine Henriquez Exam Date: 02/14/2024 09:11 Exam Location: [place] Stress Ht (in): 61 Wt (lb): 175 BSA: 1.78 Ordering Phys: Chetan Wallis MD Referring Phys: GRETA Technologist: Wilbert Fitch Age: 33 Gender: F : 1990 Procedure CPT: Indications: R07.9 CHEST PAIN ICD-10 Codes: Patient History: Chest pain, Short of breath, palpitations, fanily history of heart disease. Medications: Meds past 24 hrs: Pretest Chest Pain: STRESS TEST Ezra Protocol Exercise Duration (min:sec): 07:[address] Depressions (mm): Angina Score: Crabtree Score: Resting HR (bpm): 48 Peak HR (bpm): 187 Resting BP (mmHg): 100 / 68 Peak BP (mmHg): 220 / 78 MPHR: 189 Target HR: 161 % MPHR: 99 METS: 9.8 Total Dose: Peak Dose: Atropine: Double Product: 56328 BP Response: Stress Termination: Reached target heart rate Stress Symptoms: Dyspnea Stress Summary: ECG ANALYSIS Resting ECG: Normal sinus rhythm, normal ECG Stress ECG: No significant ST or T wave changes that are diagnostic for ischemia by ST segment analysis. There were no significant arrhythmias noted during the stress test. CONCLUSIONS Fair exercise tolerance for age achieving 9.8 METS Normal hemodynamic and clinical response to treadmill exercise Nonischemic ECG response to treadmill exercise. Overall normal treadmill stress test Dr Elliot Brandt (Electronically Signed) Final Date: 14 February 2024 13:23
== END | disposition home or self-care (01) ==
LOC: RADNMMAIN 08:24
PROVIDERS: ATTEND Internal Medicine
DX: R07.9 Chest pain, unspecified (principal)
CPT/HCPCS: 93017

== ENCOUNTER 2024-07-27 12:27 | Emergency (ER) | payer OTHER ==
[2024-07-27 13:00] VITALS: TEMP 97.9
--- NOTE | 2024-07-27 13:16 | ED ---
Abdominal Pain HPI - General Source: patient Mode of arrival: ambulatory Limitations: no limitations <Vel Lujan - Last Filed: 07/27/24 13:15> <Carissa Johansen - Last Filed: 07/27/24 16:18> - General Chief Complaint: Abdominal Pain Stated Complaint: abd pain Time Seen by Provider: 07/27/24 13:15 - History of Present Illness Initial Comments: 24-year-old female estimated to be about 7 weeks based on LMP of 06/21/2024 presenting with chief complaint of left-sided pelvic pain. This is sharp pain. No vaginal bleeding. Patient does have history of ectopic . G4, (Vel Lujan) This is a 34 year old female, with no significant medical history, estimated at 7 weeks gestation (A1) presenting to emergency room for chief complaint of left sided abdominal/pelvic pain that is a sharp and stabbing sensation. States that this pain has been ongoing over the past week. She denies associated vaginal bleeding, vaginal discharge, dysuria, hematuria, flank pain, fevers, chills, nausea, vomiting. Patient does have a history of an ectopic in 2018. States that she had blood work completed a week ago at [facility] where hCG level was drawn however ultrasound testing was not completed. Patient has appointment scheduled with [facility] next week in addition to her OB middle of August. (Carissa Johansen) - Related Data Previous Rx's Medication Instructions Recorded Cephalexin [Keflex] 500 mg PO Q12HR #14 cap 02/23/18 Allergies Allergy/AdvReac Type Severity Reaction Status Date / Time No Known Allergies Allergy Verified 02/23/18 09:55 Review of Systems ROS Other: All systems not noted in ROS Statement are negative. <Vel Lujan - Last Filed: 07/27/24 13:15> ROS Other: All systems not noted in ROS Statement are negative. <Carissa Johansen - Last Filed: 07/27/24 16:18> ROS Statement: Those systems with pertinent positive or pertinent negative responses have been documented in the HPI. Past Medical History Past Medical History: No Reported History Additional Past Medical History / Comment(s): Obstetrics history: She's had one termination one spontaneous and 1 full-term vaginal delivery. This is her fourth . She's had care with me since 11 weeks gestation. Blood type O+, amylase negative, rubella immune, treponema antibody negative, hepatitis B negative. Normal 1 hour glucose tolerance test. GBS negative. History of Any Multi-Drug Resistant Organisms: None Reported Past Surgical History: No Surgical Hx Reported Additional Past Surgical History / Comment(s): WISDOM TEETH Past Anesthesia/Blood Transfusion Reactions: No Reported Reaction Past Psychological History: No Psychological Hx Reported Smoking Status: Never smoker Past Alcohol Use History: Occasional Past Drug Use History: None Reported - Past Family History Father Family Medical History: Hypertension Mother Family Medical History: Diabetes Mellitus, Hypertension, Thyroid Disorder <Vel Lujan - Last Filed: 07/27/24 13:15> General Exam Limitations: no limitations <Vel Lujan - Last Filed: 07/27/24 13:15> General appearance: alert, in no apparent distress Neck exam: Present: normal inspection. Absent: tenderness, meningismus, lymphadenopathy Respiratory exam: Present: normal lung sounds bilaterally. Absent: respiratory distress, wheezes, rales, rhonchi, stridor Cardiovascular Exam: Present: regular rate, normal rhythm, normal heart sounds. Absent: systolic murmur, diastolic murmur, rubs, gallop, clicks GI/Abdominal exam: Present: soft, tenderness (LLQ/pelvic), normal bowel sounds. Absent: distended, guarding, rebound, rigid Extremities exam: Present: normal inspection, full ROM, normal capillary refill. Absent: tenderness, pedal edema, joint swelling, calf tenderness Back exam: Present: normal inspection <Carissa Johansen - Last Filed: 07/27/24 16:18> - General Exam Comments Initial Comments: Visual Physical Exam Vital signs reviewed General: Well-appearing, nontoxic, no acute distress. Head: Normocephalic, atraumatic Eyes: PERRLA, EOMI ENT: Airway patent Chest: Nonlabored breathing Skin: No visual rash, normal skin tone Neuro: Alert and oriented 3 Musculoskeletal: No gross abnormalities (Vel Lujan) Course Vital Signs 07/27/24 07/27/24 12:55 16:13 Temperature 97.9 F Pulse Rate 96 92 Respiratory 16 18 Rate Blood Pressure 109/71 108/7 O2 Sat by Pulse 97 98 Oximetry Medical Decision Making <Vel Lujan - Last Filed: 07/27/24 13:15> - Lab Data Result diagrams: 07/27/24 13:06 07/27/24 13:06 <Carissa Johansen - Last Filed: 07/27/24 16:18> - Medical Decision Making I performed the quick note portion of this visit, electronically signed Vel Lujan PA-C (Vel Lujan) Was pt. sent in by a medical professional or institution ([facility], [facility] [facility], urgent care, hospital, or penitentiary...) When possible be specific @ -No Did you speak to anyone other than the patient for history (EMS, parent, family, police, friend...)? What history was obtained from this source @ -No Did you review nursing and triage notes (agree or disagree)? Why? @ -I reviewed and agree with nursing and triage notes Were old charts reviewed (outside hosp., previous admission, EMS record, old EKG, old radiological studies, urgent care reports/EKG's, penitentiary records)? Report findings @ -No old charts were reviewed Differential Diagnosis (chest pain, altered mental status, abdominal pain women, abdominal pain men, vaginal bleeding, weakness, fever, dyspnea, syncope, headache, dizziness, GI bleed, back pain, seizure, CVA, palpatations, mental health, musculoskeletal)? @ -Differential Abdominal Pain Women: Appendicitis, Cholecystitis, diverticulosis, ischemic bowel, pancreatitis, hepatitis, UTI, gastroenteritis, AAA, incarcerated hernia, bowel obstruction, constipation, inflammatory bowel, hepatitis, peptic ulcer disease, splenic infarction, perforated viscus, vulvitis, ovarian torsion, PID, kidney stone, placenta abruption, this is not meant to be an all-inclusive list EKG interpreted by me (3pts min.). @ -None X-rays interpreted by me (1pt min.). @ -None done CT interpreted by me (1pt min.). @ -None done U/S interpreted by me (1pt. min.). @ -OB ultrasound completed with findings potentially reflecting early intrauterine however missed spontaneous , ectopic , as well as blighted ovum difficult to exclude, recommend repeat hCG and serial ultrasound. Gestational sac correlates with 5 weeks and 1 day Incidental finding of corpus luteal cyst with a hypoechoic area of the right o vary measuring 2 x 1.8 x 2.1 cm. What testing was considered but not performed or refused? (CT, X-rays, U/S, labs)? Why? @ -None What meds were considered but not given or refused? Why? @ -None Did you discuss the management of the patient with other professionals (professionals i.e. , [facility], [employer], lab, RT, psych nurse, geriatric social work professor, tractor trailer mechanic, teacher, certification officer, vocational case manager)? Give summary @ -No Was smoking cessation discussed for >3mins.? @ -No Was critical care preformed (if so, how long)? @ -No Were there social determinants of health that impacted care today? How? (Homelessness, low income, unemployed, alcoholism, drug addiction, transportation, low edu. Level, literacy, decrease access to med. care, shelter, rehab)? @ -No Was there de-escalation of care discussed even if they declined (Discuss DNR or withdrawal of care, Hospice)? DNR status @ -No What co-morbidities impacted this encounter? (DM, HTN, Smoking, COPD, CAD, Cancer, CVA, ARF, Chemo, Hep., AIDS, mental health diagnosis, sleep apnea, morbid obesity)? @ -None Was patient admitted / discharged? Hospital course, mention meds given and route, prescriptions, significant lab abnormalities, going to OR and other pertinent info. @ -Discharge. 34-year-old female presenting in approximately 7 weeks gestation with pelvic pain. Patient was admitted and evaluated emergency room waiting room as a quick know her labs were in addition to pelvic ultrasound. Laboratory testing unremarkable, hCG level of 2787.9, urinalysis no signs infection. OB ultrasound potential for early intrauterine however cannot rule out spontaneous . Gestational sac at this time correlates with an age of 5 weeks and 1 day. Patient provided with outpatient prescription for repeat hCG testing in 48 hours recommended she have repeat ultrasound in 1 week. Case discussed with [facility] Undiagnosed new problem with uncertain prognosis? @ -No Drug Therapy requiring intensive monitoring for toxicity (Heparin, Nitro, Insulin, Cardizem)? @ -No Were any procedures done? @ -No Diagnosis/symptom? @ -Threatened Acute, or Chronic, or Acute on Chronic? @ -Acute Uncomplicated (without systemic symptoms) or Complicated (systemic symptoms)? @ -Uncomplicated Side effects of treatment? @ -No Exacerbation, Progression, or Severe Exacerbation? @ -No Poses a threat to life or bodily function? How? (Chest pain, [place], HI, pneumonia, PE, COPD, DKA, ARF, appy, cholecystitis, CVA, Diverticulitis, Homicidal, Suicidal, threat to staff... and all critical care pts) @ -No (Deanna Johansenoe) - Lab Data Lab Results 07/27/24 07/27/24 07/27/24 Range/Units 13:06 13:06 13:06 WBC 10.8 H (3.8-10.6) k/uL RBC 4.46 (3.80-5.40) m/uL Hgb 13.9 (11.4-16.0) gm/dL Hct 41.0 (34.0-46.0) % MCV 91.8 (80.0-100.0) fL MCH 31.1 (25.0-35.0) pg MCHC 33.9 (31.0-37.0) g/dL RDW 12.2 (11.5-15.5) % Plt Count 264 (150-450) k/uL MPV 8.3 Neutrophils % 72 % Lymphocytes % 19 % Monocytes % 5 % Eosinophils % 2 % Basophils % 0 % Neutrophils # 7.7 (1.3-7.7) k/uL Lymphocytes # 2.1 (1.0-4.8) k/uL Monocytes # 0.6 (0-1.0) k/uL Eosinophils # 0.3 (0-0.7) k/uL Basophils # 0.0 (0-0.2) k/uL Sodium 137 (137-145) mmol/L Potassium 3.6 (3.5-5.1) mmol/L Chloride 108 H (98-107) mmol/L Carbon Dioxide 19 L (22-30) mmol/L Anion Gap 10 mmol/L BUN 12 (7-17) mg/dL Creatinine 0.41 L (0.52-1.04) mg/dL Est GFR (CKD-EPI)AfAm >90 (>60 ml/min/1.73 sqM) Est GFR (CKD-EPI)NonAf >90 (>60 ml/min/1.73 sqM) Glucose 102 H (74-99) mg/dL Calcium 9.8 (8.4-10.2) mg/dL Total Bilirubin 0.9 (0.2-1.3) mg/dL AST 21 (14-36) U/L ALT 18 (4-34) U/L Alkaline Phosphatase 73 (38-126) U/L Total Protein 7.6 (6.3-8.2) g/dL Albumin 4.7 (3.5-5.0) g/dL HCG, Quant mIU/mL Urine Color Urine Appearance (Clear) Urine pH (5.0-8.0) Ur Specific [place] (1.001-1.035) Urine Protein (Negative) Urine Glucose (UA) (Negative) Urine Ketones (Negative) Urine Blood (Negative) Urine Nitrite (Negative) Urine Bilirubin (Negative) Urine Urobilinogen (<2.0) mg/dL Ur Leukocyte Esterase (Negative) Blood Type O Positive Blood Type Recheck O Pos Bld Type Recheck Status No 07/27/24 07/27/24 Range/Units 13:06 15:45 WBC (3.8-10.6) k/uL RBC (3.80-5.40) m/uL Hgb (11.4-16.0) gm/dL Hct (34.0-46.0) % MCV (80.0-100.0) fL MCH (25.0-35.0) pg MCHC (31.0-37.0) g/dL RDW (11.5-15.5) % Plt Count (150-450) k/uL MPV Neutrophils % % Lymphocytes % % Monocytes % % Eosinophils % % Basophils % % Neutrophils # (1.3-7.7) k/uL Lymphocytes # (1.0-4.8) k/uL Monocytes # (0-1.0) k/uL Eosinophils # (0-0.7) k/uL Basophils # (0-0.2) k/uL Sodium (137-145) mmol/L Potassium (3.5-5.1) mmol/L Chloride (98-107) mmol/L Carbon Dioxide (22-30) mmol/L Anion Gap mmol/L BUN (7-17) mg/dL Creatinine (0.52-1.04) mg/dL Est GFR (CKD-EPI)AfAm (>60 ml/min/1.73 sqM) Est GFR (CKD-EPI)NonAf (>60 ml/min/1.73 sqM) Glucose (74-99) mg/dL Calcium (8.4-10.2) mg/dL Total Bilirubin (0.2-1.3) mg/dL AST (14-36) U/L ALT (4-34) U/L Alkaline Phosphatase (38-126) U/L Total Protein (6.3-8.2) g/dL Albumin (3.5-5.0) g/dL HCG, Quant 2787.9 mIU/mL Urine Color Yellow Urine Appearance Clear (Clear) Urine pH 5.5 (5.0-8.0) Ur Specific [place] 1.030 (1.001-1.035) Urine Protein Trace H (Negative) Urine Glucose (UA) Negative (Negative) Urine Ketones Trace H (Negative) Urine Blood Negative (Negative) Urine Nitrite Negative (Negative) Urine Bilirubin Negative (Negative) Urine Urobilinogen <2.0 (<2.0) mg/dL Ur Leukocyte Esterase Negative (Negative) Blood Type Blood Type Recheck Bld Type Recheck Status Disposition <Vel Lujan - Last Filed: 07/27/24 13:15> Is patient prescribed a controlled substance at d/c from ED?: No Time of Disposition: 15:59 <Carissa Johansen - Last Filed: 07/27/24 16:18> Clinical Impression: Threatened miscarriage, Early stage of Disposition: HOME SELF-CARE Condition: Stable Instructions (If sedation given, give patient instructions): Threatened Miscarriage (ED) Additional Instructions: Please return to the Emergency Department if symptoms worsen or any other concerns. Return to the emergency department in 48 hours for repeat hCG level. Recommend that you have a repeat ultrasound in approximately 1 week. Referrals: Chetan Wallis MD [REFERRING] - 1-2 days
[2024-07-27 13:22] LABS: Basophils % (A) 0 %; Eosinophils # (A) 0.3 k/uL (0-0.7); Eosinophils % (A) 2 %; HGB 13.9 gm/dL (11.4-16.0); Lymphocytes # (A) 2.1 k/uL (1.0-4.8); Lymphocytes % (A) 19 %; MCH 31.1 pg (25.0-35.0); MCHC 33.9 g/dL (31.0-37.0); MCV 91.8 fL (80.0-100.0); Mean Platelet Volume 8.3; Monocytes # (A) 0.6 k/uL (0-1.0); Monocytes % (A) 5 %; Neutrophils # (A) 7.7 k/uL (1.3-7.7); Neutrophils % (A) 72 %; Platelet Count 264 k/uL (150-450); RBC 4.46 m/uL (3.80-5.40); RDW 12.2 % (11.5-15.5); WBC 10.8 k/uL (3.8-10.6)
[2024-07-27 13:30] LABS: ALT 18 U/L (4-34); AST 21 U/L (14-36); African American GFR (CKD) >90 (>60 ml/min/1.73 sqM); Albumin 4.7 g/dL (3.5-5.0); Alkaline Phosphatase 73 U/L (38-126); Anion Gap 10 mmol/L; Blood Urea Nitrogen 12 mg/dL (7-17); Calcium 9.8 mg/dL (8.4-10.2); Carbon Dioxide 19 mmol/L (22-30); Chloride 108 mmol/L (98-107); Glucose 102 mg/dL (74-99); Non-African American GFR(CKD) >90 (>60 ml/min/1.73 sqM); Potassium 3.6 mmol/L (3.5-5.1); Sodium 137 mmol/L (137-145); Total Bilirubin 0.9 mg/dL (0.2-1.3); Total Protein 7.6 g/dL (6.3-8.2)
--- NOTE | 2024-07-27 14:26 | US ---
EXAMINATION TYPE: Transabdominal DATE OF EXAM: 07/27/2024 1:54 PM COMPARISON: NONE CLINICAL INDICATION: Female, 34 years old with history of 06/21/24 left lower abd pain hx tubal pregnan cy; Left pelvic pain. History of tubal 2018 TECHNIQUE: Transvaginal (TV) and Transabdominal (TA) with grayscale and color Doppler imaging includi ng first trimester . FINDINGS: EXAM MEASUREMENTS: GESTATIONAL AGE / DATING Physician Established: Not yet established Dates by LMP: (5 weeks/1 days) EDC: 03/28/25 Dates by First Scan: No previous this is first scan Dates by Current Scan for: (5 weeks/1 days) -MSD MATERNAL ANATOMY Uterus: 8.5 x 5.4 x 6.3cm Right Ovary: 3.0 x 2.8 x 2.0cm Left Ovary: 26 x 1.0 x 1.2cm Post CDS / Adnexa: increased vascularity left adnexa Presence of free fluid: no Presence of corpus luteal cyst: yes, hypoechoic area right ovary = 2.0 x 1.8 x 2.1cm Presence of subchorionic bleed: no GESTATION / SURVEY Gestational Sac morphology: Normal Gestational Sac MSD: 0.6cm (5 weeks/1 days) Yolk Sac (normal less than 6mm): not seen IUP: no evidence of pole at this time Date of LMP: 06/21/24 Beta HcG (if available): Not available at this time IMPRESSION: 1. The findings may reflect normal early IUP however missed spontaneous , ectopic a s well as blighted ovum difficult to exclude at this time. Correlate with beta hCG and serial ultraso und [facility], , 07/27/2024 2:24 PM
[2024-07-27 15:51] LABS: Appearance,Urine Clear (Clear); Bilirubin,Urine Negative (Negative); Blood,Urine Negative (Negative); Color,Urine Yellow; Glucose,Urine (UA) Negative (Negative); Ketones,Urine Trace (Negative); Leukocyte Esterase,Urine Negative (Negative); Nitrite,Urine Negative (Negative); PH, Urine 5.5 (5.0-8.0); Protein,Urine Trace (Negative); Urobilinogen,Urine <2.0 mg/dL (<2.0)
[2024-07-27 16:14] VITALS: BP 108/7; PULSE 92; RESP 18
== END 2024-07-27 16:14 | disposition home or self-care (01) ==
LOC: EC 12:27
DX: O20.0 Threatened abortion (principal)
CPT/HCPCS: 36415; 76801; 76817; 80053; 81003; 84702; 85025; 86900; 86901; 99284

== ENCOUNTER → 2024-07-30 | Outpatient (CLI) | payer OTHER | END | disposition home or self-care (01) | LOC: LABT 10:07 | PROVIDERS: ATTEND Physician Assistant | DX: O20.0 Threatened abortion (principal); Z3A.00 Weeks of gestation of pregnancy not specified | CPT/HCPCS: 84702 ==

== ENCOUNTER 2024-08-11 06:07 | Emergency (ER) | payer OTHER ==
--- NOTE | 2024-08-11 06:17 | ED ---
Female Urogenital HPI - General Source: patient, RN notes reviewed Mode of arrival: ambulatory Limitations: no limitations <Carissa Johansen - Last Filed: 08/11/24 08:24> <Stephani Wilks - Last Filed: 08/12/24 16:15> - General Chief complaint: Vaginal Bleeding Stated complaint: 7 weeks preg, spotting Time Seen by Provider: 08/11/24 06:10 - History of Present Illness Initial comments: This is a 34-year-old female with no medical history, [id number], presenting to the emergency department at approximately 6-1/2 weeks gestation with complaint of vaginal bleeding. Patient states that this morning at around 0200 she went to use the restroom when she noticed was a small drop of blood in the toilet and mild blood on the toilet paper (via vaginal bleeding). went to the restroom again this morning at 0530 when she experienced the same symptoms. she is presenting for further evaluation at this time. still endorses vaginal bleeding. She denies abdominal cramping, fevers, urinary complaints. Of note, patient does have a history of an ectopic in 2018 where she received an injection, no surgery occurred. (Carissa Johansen) - Related Data Previous Rx's Medication Instructions Recorded Cephalexin [Keflex] 500 mg PO Q12HR #14 cap 02/23/18 Allergies Allergy/AdvReac Type Severity Reaction Status Date / Time No Known Allergies Allergy Verified 08/11/24 06:12 Review of Systems ROS Other: All systems not noted in ROS Statement are negative. <Carissa Johansen - Last Filed: 08/11/24 08:24> ROS Other: All systems not noted in ROS Statement are negative. <Stephani Wilks - Last Filed: 08/12/24 16:15> ROS Statement: Those systems with pertinent positive or pertinent negative responses have been documented in the HPI. Past Medical History Past Medical History: No Reported History Additional Past Medical History / Comment(s): Obstetrics history: She's had one termination one spontaneous and 1 full-term vaginal delivery. This is her fourth . She's had care with me since 11 weeks gestation. Blood type O+, amylase negative, rubella immune, treponema antibody negative, hepatitis B negative. Normal 1 hour glucose tolerance test. GBS negative. History of Any Multi-Drug Resistant Organisms: None Reported Past Surgical History: No Surgical Hx Reported Additional Past Surgical History / Comment(s): WISDOM TEETH Past Anesthesia/Blood Transfusion Reactions: No Reported Reaction Past Psychological History: No Psychological Hx Reported Smoking Status: Never smoker Past Alcohol Use History: Occasional Past Drug Use History: None Reported - Past Family History Father Family Medical History: Hypertension Mother Family Medical History: Diabetes Mellitus, Hypertension, Thyroid Disorder <Carissa Johansen - Last Filed: 08/11/24 08:24> General Exam Limitations: no limitations ENT exam: Present: normal exam, mucous membranes moist Respiratory exam: Present: normal lung sounds bilaterally. Absent: respiratory distress, wheezes, rales, rhonchi, stridor Cardiovascular Exam: Present: regular rate, normal rhythm, normal heart sounds. Absent: systolic murmur, diastolic murmur, rubs, gallop, clicks GI/Abdominal exam: Present: soft, normal bowel sounds. Absent: distended, tenderness, guarding, rebound, rigid Extremities exam: Present: normal inspection, full ROM, normal capillary refill. Absent: tenderness, pedal edema, joint swelling, calf tenderness Back exam: Present: normal inspection. Absent: CVA tenderness (R), CVA tenderness (L) Neurological exam: Present: alert, oriented X3, CN II-XII intact Skin exam: Present: warm, dry, intact, normal color. Absent: rash <Carissa Johansen - Last Filed: 08/11/24 08:24> Course Vital Signs 08/11/24 08/11/24 08/11/24 06:10 07:45 08:30 Temperature 97.9 F 97.7 F Pulse Rate 88 67 59 L Respiratory 18 16 18 Rate Blood Pressure 109/73 100/70 106/62 O2 Sat by Pulse 97 99 100 Oximetry Medical Decision Making - Lab Data Result diagrams: 08/11/24 06:35 08/11/24 06:35 <Carissa Johansen - Last Filed: 08/11/24 08:24> - Lab Data Result diagrams: 08/11/24 06:35 08/11/24 06:35 <Stephani Wilks - Last Filed: 08/12/24 16:15> - Medical Decision Making Was pt. sent in by a medical professional or institution (MATHEW Sunshine, DYNAMITE PACKING MACHINE OPERATOR, urgent care, hospital, or long-term...) When possible be specific @ -No Did you speak to anyone other than the patient for history (EMS, parent, family, police, friend...)? What history was obtained from this source @ -No Did you review nursing and triage notes (agree or disagree)? Why? @ -I reviewed and agree with nursing and triage notes Were old charts reviewed (outside hosp., previous admission, EMS record, old EKG, old radiological studies, urgent care reports/EKG's, long-term records)? Report findings @ -No old charts were reviewed Differential Diagnosis (chest pain, altered mental status, abdominal pain women, abdominal pain men, vaginal bleeding, weakness, fever, dyspnea, syncope, headache, dizziness, GI bleed, back pain, seizure, CVA, palpatations, mental health, musculoskeletal)? @ -Differential Vaginal Bleeding: Spontaneous , threatened , molar , ectopic , bloody show, incompetent cervix, abruptioplacenta, placenta previa, uterine rupture, dysfunctional uterine bleeding, hemorrhage, uterine fibro ids, this is not meant to be an all-inclusive list. EKG interpreted by me (3pts min.). @ -none X-rays interpreted by me (1pt min.). @ -None done CT interpreted by me (1pt min.). @ -None done U/S interpreted by me (1pt. min.). @ -Ultrasound completed with a single viable intrauterine with gestational age of 6 weeks 5 days with no significant abnormality noted, cardiac heart rate of 120 What testing was considered but not performed or refused? (CT, X-rays, U/S, lab s)? Why? @ -None What meds were considered but not given or refused? Why? @ -None Did you discuss the management of the patient with other professionals (professionals i.e. MATHEW Sunshine, DYNAMITE PACKING MACHINE OPERATOR, lab, RT, psych nurse, social media developer, career discovery teacher, teacher, army senior officer, residential case manager)? Give summary @ -No Was smoking cessation discussed for >3mins.? @ -No Was critical care preformed (if so, how long)? @ -No Were there social determinants of health that impacted care today? How? (Homelessness, low income, unemployed, alcoholism, drug addiction, transportation, low edu. Level, literacy, decrease access to med. care, detention, rehab)? @ -No Was there de-escalation of care discussed even if they declined (Discuss DNR or withdrawal of care, Hospice)? DNR status @ -No What co-morbidities impacted this encounter? (DM, HTN, Smoking, COPD, CAD, Cancer, CVA, ARF, Chemo, Hep., AIDS, mental health diagnosis, sleep apnea, morbid obesity)? @ -None Was patient admitted / discharged? Hospital course, mention meds given and route, prescriptions, significant lab abnormalities, going to OR and other pertinent info. @ -Discharge. 34-year-old female presenting to emergency department for complaint of inability . Overall patient is well-appearing. Ultrasound reveals an intrauterine with a estimated age of 6 weeks 5 days with a heart rate of 120. There is no signs of subchorionic hemorrhage. Blood type is O+. Urinalysis no signs infection, blood is present. Patient has appointment scheduled with OB on August 27. pelvic rest discussed with patient. Return parameters discussed. Case discussed with Dr. Wilks Undiagnosed new problem with uncertain prognosis? @ -No Drug Therapy requiring intensive monitoring for toxicity (Heparin, Nitro, Insulin, Cardizem)? @ -No Were any procedures done? @ -No Diagnosis/symptom? @ -vaginal bleeding during Acute, or Chronic, or Acute on Chronic? @ -acute Uncomplicated (without systemic symptoms) or Complicated (systemic symptoms)? @ -uncomplicated Side effects of treatment? @ -No Exacerbation, Progression, or Severe Exacerbation? @ -No Poses a threat to life or bodily function? How? (Chest pain, USA, NC, pneumonia, PE, COPD, DKA, ARF, appy, cholecystitis, CVA, Diverticulitis, Homicidal, Suicidal, threat to staff... and all critical care pts) @ -No (Carissa Johansen) - Lab Data Lab Results 08/11/24 08/11/24 08/11/24 Range/Units 06:28 06:35 06:35 WBC 9.6 (3.8-10.6) k/uL RBC 3.93 (3.80-5.40) m/uL Hgb 12.3 (11.4-16.0) gm/dL Hct 36.1 (34.0-46.0) % MCV 91.7 (80.0-100.0) fL MCH 31.1 (25.0-35.0) pg MCHC 34.0 (31.0-37.0) g/dL RDW 12.0 (11.5-15.5) % Plt Count 276 (150-450) k/uL MPV 7.8 Neutrophils % 66 % Lymphocytes % 24 % Monocytes % 6 % Eosinophils % 2 % Basophils % 0 % Neutrophils # 6.3 (1.3-7.7) k/uL Lymphocytes # 2.4 (1.0-4.8) k/uL Monocytes # 0.6 (0-1.0) k/uL Eosinophils # 0.2 (0-0.7) k/uL Basophils # 0.0 (0-0.2) k/uL Sodium 136 L (137-145) mmol/L Potassium 3.7 (3.5-5.1) mmol/L Chloride 104 (98-107) mmol/L Carbon Dioxide 24 (22-30) mmol/L Anion Gap 8 mmol/L BUN 12 (7-17) mg/dL Creatinine 0.50 L (0.52-1.04) mg/dL Est GFR (CKD-EPI)AfAm >90 (>60 ml/min/1.73 sqM) Est GFR (CKD-EPI)NonAf >90 (>60 ml/min/1.73 sqM) Glucose 115 H (74-99) mg/dL Calcium 8.8 (8.4-10.2) mg/dL Total Bilirubin 0.4 (0.2-1.3) mg/dL AST 16 (14-36) U/L ALT 16 (4-34) U/L Alkaline Phosphatase 67 (38-126) U/L Total Protein 6.4 (6.3-8.2) g/dL Albumin 3.8 (3.5-5.0) g/dL HCG, Quant 87824.8 mIU/mL Urine Color Urine Appearance (Clear) Urine pH (5.0-8.0) Ur Specific [place] (1.001-1.035) Urine Protein (Negative) Urine Glucose (UA) (Negative) Urine Ketones (Negative) Urine Blood (Negative) Urine Nitrite (Negative) Urine Bilirubin (Negative) Urine Urobilinogen (<2.0) mg/dL Ur Leukocyte Esterase (Negative) Urine RBC (0-5) /hpf Urine WBC (0-5) /hpf Ur Squamous Epith Cells (0-4) /hpf Urine Mucus (None) /hpf Blood Type O Positive Blood Type Recheck O Pos Bld Type Recheck Status No 08/11/24 Range/Units 06:56 WBC (3.8-10.6) k/uL RBC (3.80-5.40) m/uL Hgb (11.4-16.0) gm/dL Hct (34.0-46.0) % MCV (80.0-100.0) fL MCH (25.0-35.0) pg MCHC (31.0-37.0) g/dL RDW (11.5-15.5) % Plt Count (150-450) k/uL MPV Neutrophils % % Lymphocytes % % Monocytes % % Eosinophils % % Basophils % % Neutrophils # (1.3-7.7) k/uL Lymphocytes # (1.0-4.8) k/uL Monocytes # (0-1.0) k/uL Eosinophils # (0-0.7) k/uL Basophils # (0-0.2) k/uL Sodium (137-145) mmol/L Potassium (3.5-5.1) mmol/L Chloride (98-107) mmol/L Carbon Dioxide (22-30) mmol/L Anion Gap mmol/L BUN (7-17) mg/dL Creatinine (0.52-1.04) mg/dL Est GFR (CKD-EPI)AfAm (>60 ml/min/1.73 sqM) Est GFR (CKD-EPI)NonAf (>60 ml/min/1.73 sqM) Glucose (74-99) mg/dL Calcium (8.4-10.2) mg/dL Total Bilirubin (0.2-1.3) mg/dL AST (14-36) U/L ALT (4-34) U/L Alkaline Phosphatase (38-126) U/L Total Protein (6.3-8.2) g/dL Albumin (3.5-5.0) g/dL HCG, Quant mIU/mL Urine Color Light Yellow Urine Appearance Clear (Clear) Urine pH 6.5 (5.0-8.0) Ur Specific [place] 1.018 (1.001-1.035) Urine Protein Negative (Negative) Urine Glucose (UA) Negative (Negative) Urine Ketones Negative (Negative) Urine Blood Large H (Negative) Urine Nitrite Negative (Negative) Urine Bilirubin Negative (Negative) Urine Urobilinogen <2.0 (<2.0) mg/dL Ur Leukocyte Esterase Negative (Negative) Urine RBC 30 H (0-5) /hpf Urine WBC 4 (0-5) /hpf Ur Squamous Epith Cells <1 (0-4) /hpf Urine Mucus Rare H (None) /hpf Blood Type Blood Type Recheck Bld Type Recheck Status Disposition Is patient prescribed a controlled substance at d/c from ED?: No Time of Disposition: 08:12 <Carissa Johansen - Last Filed: 08/11/24 08:24> <Stephani Wilks - Last Filed: 08/12/24 16:15> Clinical Impression: Vaginal bleeding during Disposition: HOME SELF-CARE Condition: Good Instructions (If sedation given, give patient instructions): Threatened Miscarriage (ED) Additional Instructions: Please return to the Emergency Department if symptoms worsen or any other concerns. Referrals: None,Stated [Primary Care Provider] - 1-2 days
[2024-08-11 06:56] LABS: Basophils % (A) 0 %; Eosinophils # (A) 0.2 k/uL (0-0.7); Eosinophils % (A) 2 %; HCT 36.1 % (34.0-46.0); HGB 12.3 gm/dL (11.4-16.0); Lymphocytes # (A) 2.4 k/uL (1.0-4.8); Lymphocytes % (A) 24 %; MCH 31.1 pg (25.0-35.0); MCV 91.7 fL (80.0-100.0); Mean Platelet Volume 7.8; Monocytes # (A) 0.6 k/uL (0-1.0); Monocytes % (A) 6 %; Neutrophils # (A) 6.3 k/uL (1.3-7.7); Neutrophils % (A) 66 %; Platelet Count 276 k/uL (150-450); RBC 3.93 m/uL (3.80-5.40); WBC 9.6 k/uL (3.8-10.6)
[2024-08-11 07:08] LABS: ALT 16 U/L (4-34); AST 16 U/L (14-36); African American GFR (CKD) >90 (>60 ml/min/1.73 sqM); Albumin 3.8 g/dL (3.5-5.0); Alkaline Phosphatase 67 U/L (38-126); Anion Gap 8 mmol/L; Blood Urea Nitrogen 12 mg/dL (7-17); Calcium 8.8 mg/dL (8.4-10.2); Carbon Dioxide 24 mmol/L (22-30); Chloride 104 mmol/L (98-107); Glucose 115 mg/dL (74-99); Non-African American GFR(CKD) >90 (>60 ml/min/1.73 sqM); Potassium 3.7 mmol/L (3.5-5.1); Sodium 136 mmol/L (137-145); Total Bilirubin 0.4 mg/dL (0.2-1.3); Total Protein 6.4 g/dL (6.3-8.2)
[2024-08-11 07:21] LABS: Appearance,Urine Clear (Clear); Bilirubin,Urine Negative (Negative); Blood,Urine Large (Negative); Color,Urine Light Yellow; Glucose,Urine (UA) Negative (Negative); Ketones,Urine Negative (Negative); Leukocyte Esterase,Urine Negative (Negative); Mucus,Urine Rare /hpf; Nitrite,Urine Negative (Negative); PH, Urine 6.5 (5.0-8.0); Protein,Urine Negative (Negative); RBC,Urine 30 /hpf (0-5); Specific Gravity,Urine 1.018 (1.001-1.035); Squamous Epithelial Cell,Urine <1 /hpf (0-4); Urobilinogen,Urine <2.0 mg/dL (<2.0); WBC,Urine 4 /hpf (0-5)
--- NOTE | 2024-08-11 07:50 | US ---
EXAMINATION TYPE: Transabdominal DATE OF EXAM: 08/11/2024 7:37 AM COMPARISON: US CLINICAL INDICATION: Female, 34 years old with history of 6 weeks, ; Pt states light vaginal bleeding after intercourse TECHNIQUE: Transabdominal (TA) with grayscale and color Doppler imaging including first trimester pre gnancy. FINDINGS: EXAM MEASUREMENTS: GESTATIONAL AGE / DATING Physician Established: Not yet established Dates by LMP: (7 weeks/2 days) EDC: 03/28/2025 Dates by First Scan: (7 weeks/2 days) EDC: 03/28/2025 Dates by Current Scan for: (6 weeks/5 days) EDC: 04/01/2025 MATERNAL ANATOMY Uterus: 11.5 x 5.2 x 6.0 cm Right Ovary: 3.3 x 2.6 x 2.0 cm Left Ovary: 2.9 x 2.7 x 1.9 cm, small 1.2 cm follicle Post CDS / Adnexa: wnl Presence of free fluid: No Presence of corpus luteal cyst: Right Ovary= 2.0 x 1.8 x 1.9 cm Presence of subchorionic bleed: No GESTATION / SURVEY CRL: 0.7 cm (6 weeks/5 days) Gestational Sac morphology: Normal Yolk Sac (normal less than 6mm): 5mm Cardiac Activity/Heart Rate: 120 bpm Rhythm: Normal IUP: Viable IUP Date of LMP: 06/21/2024 Beta HcG (if available): Not available at this time IMPRESSION: Single viable intrauterine with a gestational age of approximately 6 weeks and 5 days. No s ignificant abnormality seen. [facility], , 08/11/2024 7:48 AM
[2024-08-11 08:33] VITALS: BP 106/62; PULSE 59; RESP 18; TEMP 97.7
== END 2024-08-11 08:33 | disposition home or self-care (01) ==
LOC: EC 06:07
DX: O20.9 Hemorrhage in early pregnancy, unspecified (principal); Z3A.01 Less than 8 weeks gestation of pregnancy
CPT/HCPCS: 36415; 76801; 80053; 81001; 84702; 85025; 86900; 86901; 99284

== ENCOUNTER → 2024-08-31 | Outpatient (CLI) | payer OTHER ==
[2024-09-01 06:08] LABS: Basophils # (A) 0.05 X 10*3/uL (0.00-0.10); Basophils % (A) 0.7 %; Eosinophils # (A) 0.09 X 10*3/uL (0.04-0.35); Eosinophils % (A) 1.2 %; HCT 36.2 % (37.2-46.3); HGB 11.9 g/dL (12.0-15.0); Lymphocytes # (A) 2.09 X 10*3/uL (0.90-5.00); Lymphocytes % (A) 27.2 %; MCH 31.1 pg (27.0-32.0); MCHC 32.9 g/dL (32.0-37.0); MCV 94.5 FL (80.0-97.0); Mean Platelet Volume 10.7 FL (9.5-12.2); Monocytes # (A) 0.59 X 10*3/uL (0.20-1.00); Monocytes % (A) 7.7 %; NRBC Per 100 WBC 0 X 10*3/uL (0.00-0.01); Neutrophils # (A) 4.85 X 10*3/uL (1.80-7.70); Neutrophils % (A) 62.9 %; Platelet Count 246 X 10*3/uL (140-440); RBC 3.83 X 10*6/uL (4.10-5.20); RDW 12.2 % (11.5-14.5); WBC 7.69 X 10*3/uL (4.50-10.00)
== END | disposition home or self-care (01) ==
LOC: LABWHC1 11:22
PROVIDERS: ATTEND Obstetrics & Gynecology
DX: Z01.812 Encounter for preprocedural laboratory examination (principal); O02.1 Missed abortion
CPT/HCPCS: 36415; 85025; 86850; 86900; 86901

== ENCOUNTER 2024-09-02 06:09 | Day surgery (SDC) | payer OTHER ==
[2024-08-30 09:57] VITALS: BMI 31.5
[~2024-09-02 06:09] MED LIST: Pre Op ABX Message 1 EACH MISC MISCELLANE ONE
[2024-09-02] MEDS ORDERED: MIDAZOLAM 2 MG/2 ML VIAL IV PRN (06:44)
[2024-09-02] MEDS ORDERED: HYDROmorphone 0.5 MG/0.5 ML SYRINGE IVP PRN (06:44)
[2024-09-02] MEDS ORDERED: fentaNYL (PF) 50 MCG/ML 2 ML AMP IVP PRN (06:44)
[2024-09-02] MEDS ORDERED: LIDOCAINE 1% (10MG/ML) FOR IV START INTRADERMA PRN (06:44)
--- NOTE | 2024-09-02 07:12 | P.HPOB ---
History of Present Illness H&P Date: 09/02/24 Chief Complaint: incomplete ab 34 year old underwent US after some spotting and this showed 8 week 5 day fetus with absent heart tones. She presents to [facility] for suction D&C. Review of Systems All systems: negative Constitutional: Denies chills, Denies fever Eyes: denies blurred vision, denies pain Ears, nose, mouth and throat: Denies headache, Denies sore throat Cardiovascular: Denies chest pain, Denies shortness of breath Respiratory: Denies cough Gastrointestinal: Denies abdominal pain, Denies diarrhea, Denies nausea, Denies vomiting Genitourinary: Denies dysuria, Denies hematuria Musculoskeletal: Denies myalgias Integumentary: Denies pruritus, Denies rash Neurological: Denies numbness, Denies weakness Psychiatric: Denies anxiety, Denies depression Endocrine: Denies fatigue, Denies weight change Past Medical History Past Medical History: No Reported History Additional Past Medical History / Comment(s): Migraines. History of Any Multi-Drug Resistant Organisms: None Reported Past Surgical History: No Surgical Hx Reported Additional Past Surgical History / Comment(s): WISDOM TEETH. Past Anesthesia/Blood Transfusion Reactions: No Reported Reaction, Motion Sickness Smoking Status: Never smoker - Past Family History Father Family Medical History: Hypertension Mother Family Medical History: Diabetes Mellitus, Hypertension, Thyroid Disorder Brother(s) Family Medical History: Deep Vein Thrombosis (DVT) Medications and Allergies Home Medications Medication Instructions Recorded Confirmed Type Ibuprofen 800 mg PO Q8H PRN 08/30/24 08/30/24 History Allergies Allergy/AdvReac Type Severity Reaction Status Date / Time No Known Allergies Allergy Verified 09/02/24 06:50 Exam Osteopathic Statement: *. No significant issues noted on an osteopathic structural exam other than those noted in the History and Physical/Consult. Vital Signs Temp Pulse Resp BP Pulse Ox 09/02/24 06:56 97.7 F 70 18 115/62 100 Intake and Output 09/01/24 09/02/24 09/02/24 22:59 06:59 14:59 Other: Weight 69.9 kg Heart: Regular rate and rhythm Lungs: Clear to auscultation bilaterally Abdomen: Soft, nontender Extremities: Negative Homans sign Assessment and Plan (1) Incomplete Current Visit: Yes Status: Acute Code(s): O03.4 - INCOMPLETE SPONTANEOUS WITHOUT COMPLICATION SNOMED Code(s): 497476226 Plan: 1. Suction D&C
[2024-09-02] MEDS: DEXAMETHASONE SOD PHOSPHATE 4 MG/ML 1 ML VIAL IV ONE (07:15)
[2024-09-02] MEDS: ONDANSETRON 4 MG/2 ML VIAL IVP ONE (07:15)
[2024-09-02] MEDS: IV FLUID CONTINUATION 1,000 ML IV ONE (07:15)
[2024-09-02] MEDS: LACTATED RINGERS 1,000 ML IV SCH (07:15)
[2024-09-02] MEDS: FAMOTIDINE 20 MG/2 ML VIAL IV STA (07:16)
[2024-09-02] MEDS: SCOPOLAMINE 1 MG/72 HR PATCH TRANSDERM STA (07:27)
[2024-09-02] MEDS ORDERED: MIDAZOLAM 2 MG/2 ML VIAL ONE (07:28)
[2024-09-02] MEDS ORDERED: fentaNYL (PF) 50 MCG/ML 2 ML AMP ONE (07:28)
[2024-09-02] MEDS ORDERED: LIDOCAINE 1% INJ 10MG/ML (20 ML MDV) ONE (07:28)
[2024-09-02] MEDS ORDERED: KETOROLAC 15 MG/ML 1 ML VIAL ONE (07:28)
[2024-09-02] MEDS ORDERED: PROPOFOL 10 MG/ML 20 ML VIAL IV ONE (07:28)
--- NOTE | 2024-09-02 07:54 | P.OP ---
Date of Procedure: 09/02/24 Preoperative Diagnosis: 1. Incomplete Postoperative Diagnosis: 1. Incomplete Procedure(s) Performed: Suction D&C Anesthesia: MAC (LMA) Surgeon: Steffanie Singh Estimated Blood Loss (ml): 150 IV fluids (ml): 200 Urine output (ml): 15 Pathology: other (Uterine contents, products of conception) Condition: stable Disposition: PACU Operative Findings: Moderate amount products of conception, uterus sounded to 10 cm Description of Procedure: Patient was taken the operating room general anesthesia was obtained without difficulty. She is prepped draped normal sterile fashion dorsolithotomy position, legs placed in candycane stirrups. Bladder was drained of all urine. Weighted speculum placed in vagina the anterior lip of cervix was grasped with a single-tooth tenaculum. Uterus of sounded to an 10 cm. The cervix was dilated to the #8 Hegar dilated in the #8 curved suction curette was introduced in the uterus and passed several times to obtain tissue and blood. Sharp curette was used to gently ensure all tissue had been removed and then the suction curette was passed a few more times. Hemostasis was assured. All instruments removed from the vagina. Patient Toller procedure well. Sponge and instrument counts correct x 2 she was taken to recovery in stable condition.
[2024-09-02 08:02] VITALS: TEMP 96.9
[2024-09-02 08:28] VITALS: RESP 16
[2024-09-02] MEDS: LACTATED RINGERS 1,000 ML IV ONE (08:30)
[2024-09-02 09:53] VITALS: BP 115/68; PULSE 62
== END 2024-09-02 10:14 | disposition home or self-care (01) ==
LOC: OR 06:09
PROVIDERS: ATTEND Obstetrics & Gynecology
DX: O03.4 Incomplete spontaneous abortion without complication (principal); Z3A.08 8 weeks gestation of pregnancy
CPT/HCPCS: 59812; J2250; J1100; J2405; J2003; J3010; J1885; J2704; J1308; 88305